=== PATIENT | male | born 1955 | race Two or more races ===

== ENCOUNTER 2020-01-23 22:27 | Emergency (ER) | payer MEDICAID ==
[~2020-01-23] VITALS: Ht 170.2 cm; Wt 90.0 kg
[~2020-01-23 22:27] MED LIST: AMOX1TAB64 PO; METF-162 PO; OXYC-302
[2020-01-23 22:31] VITALS: BP 134/82
[2020-01-24] MEDS ORDERED: KETOROLAC 30 MG/1 ML IM ONE
--- NOTE | 2020-01-24 02:04 | NUR ---
PT TO ROOM, AMBULATORY WITH STEADY GAIT
[2020-01-24] MEDS ORDERED: KETOROLAC 30 MG/1 ML ONE (02:07)
--- NOTE | 2020-01-24 02:15 | NUR ---
TASK RN: PT MEDICATED PER MAR FOR PAIN AT THIS TIME. DR PALACIOS AT FOR PT HISTORY AND ASSESSMENT.
== END 2020-01-24 02:40 | disposition home or self-care (01) ==
LOC: ED 01-24 02:20
DX: M54.32 Sciatica, left side (principal); R10.9 Unspecified abdominal pain
CPT/HCPCS: 72110; 96372; 99283; J1885

== ENCOUNTER → 2020-12-24 | Outpatient (CLI) | payer MEDICARE, MEDICAID ==
[~2020-12-24] MED LIST changes: +AMOX500T PO; +LISI-167 PO; +LOVA10TA PO; +METF500T27 PO; -OXYC-302; +OXYC1TAB14; +TRAZ50TA66 PO
[2020-12-24 15:16] LABS: ALANINE AMINOTRANSFERASE 25 U/L (12-78); ALBUMIN 3.8 g/dL (3.4-5.0); ANION GAP 8 mmol/L (5-15); CALCIUM 9.2 mg/dL (8.5-10.1); CHLORIDE 104 mmol/L (98-107)
[2020-12-24 15:18] LABS: ALKALINE PHOSPHATASE 108 U/L (45-117); BILIRUBIN,TOTAL 0.4 mg/dL (0.2-1.0)
== END | disposition home or self-care (01) ==
LOC: STAR 14:12
PROVIDERS: ATTEND Otolaryngology
DX: Z01.818 Encounter for other preprocedural examination (principal); D11.0 Benign neoplasm of parotid gland; I44.4 Left anterior fascicular block
CPT/HCPCS: 36415; 80053; 93005

== ENCOUNTER 2020-12-30 07:27 | Day surgery (SDC) | payer MEDICARE, MEDICAID ==
[~2020-12-30] VITALS: Ht 167.6 cm; Wt 87.1 kg
[2020-12-30 08:05] VITALS: BP 146/74
[2020-12-30] MEDS ORDERED: LACTATED RINGERS 1,000 ML IV SCH (08:30)
[2020-12-30] MEDS ORDERED: CHLORHEXIDINE 15 ML UDC PO ONE (08:30)
[2020-12-30] MEDS ORDERED: MIDAZOLAM 1 MG/ML, 2ML ONE (09:52)
[2020-12-30] MEDS ORDERED: FENTANYL PF 250 MCG/5ML ONE (09:53)
[2020-12-30] MEDS ORDERED: EPINEPHRINE 1 MG/ML, 1ML ONE (09:56)
[2020-12-30] MEDS ORDERED: MUPIROCIN OINT 2%, 22GM ONE (09:56)
[2020-12-30] MEDS ORDERED: LIDOCAINE/PF 1%, 30ML ONE (09:56)
[2020-12-30] MEDS ORDERED: DEXAMETHASONE 4 MG/ML, 1ML ONE (10:10)
[2020-12-30] MEDS ORDERED: PROMETHAZINE 25 MG/ML, 1ML IVPush PRN (10:30)
[2020-12-30] MEDS ORDERED: HYDROmorphone 1 MG/ML, 1ML INJ IVPush PRN (10:30)
[2020-12-30] MEDS ORDERED: ACETAMINOPHEN 325 MG TABLET PO PRN (10:30)
[2020-12-30] MEDS ORDERED: LABETALOL 5MG/ML, 20ML IV PRN (10:30)
[2020-12-30] MEDS ORDERED: ONDANSETRON 2MG/ML, 2ML IVPush PRN (10:30)
[2020-12-30] MEDS ORDERED: hydrALAzine 20 MG/ML, 1ML IV PRN (10:30)
[2020-12-30] MEDS ORDERED: PROPOFOL 10 MG/ML, 20ML ONE (11:08)
[2020-12-30] MEDS ORDERED: ONDANSETRON 2MG/ML, 2ML ONE (11:08)
[2020-12-30] MEDS ORDERED: SUCCINYLCHOLINE 20 MG/ML, 10ML ONE (11:08)
[2020-12-30] MEDS ORDERED: FENTANYL PF 100 MCG/2ML ONE ×2 (11:51→12:24)
[2020-12-30] MEDS: FENTANYL PF 100 MCG/2ML IV PRN ×3 (11:59→12:27)
[2020-12-30] MEDS ORDERED: OXYcodone 5 MG/5 ML ORAL.SOL UDC ONE ×2 (12:00→12:39)
[2020-12-30] MEDS ORDERED: ACETAMINOPHEN 650 MG/20.3 ML UDC ONE (12:01)
[2020-12-30] MEDS: OXYcodone 5 MG/5 ML ORAL.SOL UDC PO PRN ×2 (12:10→12:39)
== END 2020-12-30 14:55 | disposition home or self-care (01) ==
LOC: OUT 07:27
PROVIDERS: ATTEND Otolaryngology
DX: K11.8 Other diseases of salivary glands (principal); D11.0 Benign neoplasm of parotid gland; E11.9 Type 2 diabetes mellitus without complications; I10 Essential (primary) hypertension; E78.5 Hyperlipidemia, unspecified; F17.210 Nicotine dependence, cigarettes, uncomplicated; Z79.84 Long term (current) use of oral hypoglycemic drugs; Z79.899 Other long term (current) drug therapy
CPT/HCPCS: 42410; 82962; 88307; J0171; J0330; J1100; J2250; J2405; J2704; J3010; J7120; 88305